=== PATIENT | male | born 1985 | race Caucasian/White ===

== ENCOUNTER 2017-10-22 12:29 | Emergency (ER) | payer SELFPAY ==
[~2017-10-22] VITALS: Ht 188 cm; Wt 109.8 kg
[2017-10-22 12:32] VITALS: BP 135/80; Ht 188 cm; Wt 109.8 kg
== END 2017-10-22 13:11 | disposition left against medical advice (07) ==
LOC: ED 12:29
DX: Z53.21 Procedure and treatment not carried out due to patient leaving prior to being seen by health care provider (principal)